=== PATIENT | female | born 1990 | race African-American/Black ===

== ENCOUNTER 2019-04-08 12:51 | Emergency (ER) | payer MEDICAID ==
[~2019-04-08] VITALS: Ht 170.2 cm; Wt 73.0 kg
[~2019-04-08 12:51] MED LIST: INSULIN
[2019-04-08 16:19] LABS: BASOPHILS % 0.7 % (0.0-2.0); EOSINOPHILS % 0.3 % (0.0-5.0); HEMATOCRIT. 41.4 % (36.0-48.0); LYMPHOCYTES % 15.1 % (20.0-50.0); MEAN CORPUSCULAR HEMOGLOBIN 32.2 pg (28.0-32.0); MEAN CORPUSCULAR VOLUME 95.5 fL (81.0-99.0); MEAN PLATELET VOLUME 8.7 fl (7.4-10.4); MONOCYTES % 6.9 % (2.0-8.0); PLATELET 403 x1000/uL (130-400); RED BLOOD CELL COUNT 4.33 mill/uL (4.2-5.4); RED CELL DISTRIBUTION WIDTH 12.4 % (11.6-14.6)
[2019-04-08 16:22] LABS: CHLORIDE 103 mEq/L (98-107)
[2019-04-08 16:35] LABS: HCG SCREEN NEGATIVE
[2019-04-08 17:15] VITALS: BP 130/80
== END 2019-04-08 17:46 | disposition home or self-care (01) ==
LOC: ER 12:51
DX: E11.649 Type 2 diabetes mellitus with hypoglycemia without coma (principal); Z79.4 Long term (current) use of insulin
CPT/HCPCS: 36415; 82962; 84703; 99283

== ENCOUNTER 2020-11-17 18:21 | Emergency (ER) | payer MEDICAID, OTHER ==
[~2020-11-17] VITALS: Ht 165.1 cm; Wt 65.0 kg
[2020-11-17 19:59] VITALS: BP 138/79
[2020-11-17] MEDS ORDERED: KETOROLAC 60MG/2ML VIAL IM ONE (20:00)
[2020-11-17] MEDS ORDERED: CYCL5TAB MT (20:05)
== END 2020-11-17 20:46 | disposition home or self-care (01) ==
LOC: ER 18:21
DX: M54.5 Low back pain (principal); E10.9 Type 1 diabetes mellitus without complications; Z79.4 Long term (current) use of insulin
CPT/HCPCS: 81025; 96372; 99283; J1885

== ENCOUNTER 2020-11-21 21:28 | Emergency (ER) | payer OTHER ==
[~2020-11-21] VITALS: Ht 162.6 cm; Wt 68.0 kg
[~2020-11-21 21:28] MED LIST changes: +CYCL5TAB MT
[2020-11-22 00:45] LABS: BASOPHILS % 0.5 % (0.0-2.0); CHLORIDE 102 mEq/L (98-107); EOSINOPHILS % 0.1 % (0.0-5.0); HEMATOCRIT. 37.5 % (36.0-48.0); LYMPHOCYTES % 38.3 % (20.0-50.0); MEAN CORPUSCULAR HEMOGLOBIN 31.3 pg (28.0-32.0); MEAN CORPUSCULAR VOLUME 90.4 fL (81.0-99.0); MONOCYTES % 8.9 % (2.0-8.0); NEUTROPHILS % 52.2 % (40.0-76.0); PLATELET 248 x1000/uL (130-400); RED BLOOD CELL COUNT 4.15 mill/uL (4.2-5.4); RED CELL DISTRIBUTION WIDTH 12.3 % (11.6-14.6)
[2020-11-22 01:02] LABS: HCG SCREEN NEGATIVE
[2020-11-22 01:11] LABS: CLARITY URINE CLOUDY (CLEAR); COLOR URINE YELLOW (YELLOW); KETONES URINE 4+ (NEGATIVE); LEUKOCYTE ESTERASE URINE TRACE (NEGATIVE); NITRITE URINE NEGATIVE (NEGATIVE); OCCULT BLOOD URINE NEGATIVE (NEGATIVE); PH URINE 6.5 (4.5-8.0); PROTEIN URINE 2+ (NEGATIVE); SPECIFIC GRAVITY URINE 1.029 (1.005-1.030)
[2020-11-22] MEDS ORDERED: SODIUM CHLORIDE 0.9% 1,000 ML IV ONE (02:15)
[2020-11-22] MEDS ORDERED: KETOROLAC 30MG/ML VIAL IV ONE (02:15)
[2020-11-22] MEDS ORDERED: CEFTRIAXONE 1 G PREMIX 50 ML IV ONE (02:15)
[2020-11-22] MEDS ORDERED: ACET-2708 MT (02:32)
[2020-11-22] MEDS ORDERED: CIPR-263 MT (02:32)
[2020-11-22 04:00] VITALS: BP 114/76
== END 2020-11-22 04:54 | disposition home or self-care (01) ==
LOC: ER 21:28
DX: N12 Tubulo-interstitial nephritis, not specified as acute or chronic (principal); E11.9 Type 2 diabetes mellitus without complications; Z79.899 Other long term (current) drug therapy
CPT/HCPCS: 36415; 76700; 80053; 81003; 81025; 83690; 84703; 85025; 87086; 96365; 96375; 99284; J1885; J7030; Z7610

== ENCOUNTER 2020-11-25 17:43 | Inpatient (IN) | payer MEDICAID, OTHER ==
[~2020-11-25] VITALS: Ht 160 cm; Wt 63.0 kg
[~2020-11-25 17:43] MED LIST changes: +ACET-2708 MT; +CIPR-263 MT
[2020-11-25] MEDS ORDERED: KETOROLAC 30MG/ML VIAL IV STA (18:11)
[2020-11-25 19:10] LABS: BASOPHILS % 0.5 % (0.0-2.0); HEMATOCRIT. 39.1 % (36.0-48.0); HEMOGLOBIN. 13.4 g/dL (12.0-16.0); MEAN CORPUSCULAR HEMOGLOBIN 31.7 pg (28.0-32.0); MEAN CORPUSCULAR VOLUME 92.3 fL (81.0-99.0); MEAN PLATELET VOLUME 9.4 fl (7.4-10.4); MONOCYTES % 7.4 % (2.0-8.0); NEUTROPHILS % 84.1 % (40.0-76.0); PLATELET 243 x1000/uL (130-400); RED BLOOD CELL COUNT 4.24 mill/uL (4.2-5.4); RED CELL DISTRIBUTION WIDTH 12.2 % (11.6-14.6)
[2020-11-25 19:20] LABS: PROTHROMBIN TIME 11.1 sec (9.6-11.0)
[2020-11-25 19:21] LABS: CHLORIDE 101 mEq/L (98-107)
[2020-11-25 19:23] LABS: HCG SCREEN NEGATIVE
[2020-11-25] MEDS ORDERED: SODIUM CHLORIDE 0.9% 1000ML BAG (SEPSIS BOLUS) IV ONE (19:30)
[2020-11-25] MEDS ORDERED: SODIUM CHLORIDE 0.9% 1,890 ML IV SCH (19:30)
[2020-11-25] MEDS ORDERED: ONDANSETRON HCL 4MG/2ML INJ IV ONE (19:30)
[2020-11-25 20:08] LABS: CLARITY URINE CLEAR (CLEAR); COLOR URINE YELLOW (YELLOW); KETONES URINE 4+ (NEGATIVE); LEUKOCYTE ESTERASE URINE NEGATIVE (NEGATIVE); NITRITE URINE NEGATIVE (NEGATIVE); OCCULT BLOOD URINE 2+ (NEGATIVE); PH URINE 5.5 (4.5-8.0); PROTEIN URINE 2+ (NEGATIVE); SPECIFIC GRAVITY URINE 1.026 (1.005-1.030); UROBILINOGEN URINE 0.2 E.U./dL (0.2-1.0)
[2020-11-25] MEDS ORDERED: CEFTRIAXONE 1 G PREMIX 50 ML IV NR (21:30)
[2020-11-25] MEDS ORDERED: AZITHROMYCIN 500 MG in DEXT 5% WATER 250 ML IV SCH (21:30)
[2020-11-25] MEDS: ONDANSETRON HCL 4MG/2ML INJ IV PRN (23:20)
[2020-11-25] MEDS: HYDROCODONE/ACETAMINOPHEN 10/325MG TABLET PO PRN (23:24)
[2020-11-26] VITALS (16 sets, daily range): BP systolic 102–140; BP diastolic 56–84
[2020-11-26] MEDS ORDERED: INSULIN REGULAR (HUMULIN R) 300UNITS/3ML VIAL SUBCUT NR ×2 (01:00)
[2020-11-26 01:34] LABS: BG BASE EXCESS -16.7 mmol/L (-2.0-2.0); BG CARBOXYHEMOGLOBIN 0.3 % (0.5-1.5); BG DEOXYHEMOGLOBIN 2.9 % (0.0-5.0); BG HCO3 ACT 8.6 mmol/L (22.0-26.0); BG METHEMOGLOBIN 0.4 % (0.0-1.5); BG OXYGEN SATURATION 97.1 % (92.0-98.5); BG OXYHEMOGLOBIN 96.4 % (94.0-97.0); BG PCO2 20.4 mmHg (35.0-45.0); BG PH 7.244 (7.350-7.450); BG PO2 97.7 mmHg (75.0-100.0); BG SAMPLE SITE RIGHT RADIAL; BG TOTAL HEMOGLOBIN 12.3 g/dL (12.0-18.0); BG VENT MODE ROOM AIR
[2020-11-26 01:46] LABS: CHLORIDE 105 mEq/L (98-107)
[2020-11-26 01:53] LABS: BETA HYDROXYBUTYRATE 4.8 mMol/L (0.0-0.3)
[2020-11-26] MEDS: SODIUM CHLORIDE 0.9% 1,000 ML IV SCH ×2 (02:45→06:00)
[2020-11-26] MEDS ORDERED: INSULIN REGULAR (DRIP) 100 UNITS in SODIUM CHLORIDE 0.9% 100 ML IV NR (02:45)
[2020-11-26] MEDS: ONDANSETRON HCL 4MG/2ML INJ IV PRN ×3 (06:07→20:24)
[2020-11-26 06:39] LABS: CHLORIDE 110 mEq/L (98-107)
[2020-11-26 06:44] LABS: PHOSPHORUS 2.2 mg/dL (2.5-4.9)
[2020-11-26] MEDS: HYDROCODONE/ACETAMINOPHEN 10/325MG TABLET PO PRN ×2 (07:48→23:44)
[2020-11-26] MEDS ORDERED: DEXTROSE 50% WATER 50ML SYRINGE IV SCH (09:30)
[2020-11-26] MEDS ORDERED: DEXT 5%/0.45% NACL 1000ML 1,000 ML IV SCH (10:00)
[2020-11-26] MEDS ORDERED: POTASSIUM-SODIUM PHOSPHATE POWDER PACKET PO NR (10:00)
[2020-11-26] MEDS ORDERED: DEXTROSE 50% WATER 50ML SYRINGE IV PRN ×3 (10:30→14:15)
[2020-11-26] MEDS: BLOOD SUGAR DIAGNOSTIC STRIP TEST SCH ×5 (10:46→21:00)
[2020-11-26] MEDS ORDERED: INSULIN REGULAR (DRIP) 100 UNITS in SODIUM CHLORIDE 0.9% 100 ML IV SCH (11:00)
[2020-11-26] MEDS ORDERED: LANTUSUD SUBCUT (12:46)
[2020-11-26] MEDS ORDERED: INSLIS SUBCUT (12:46)
[2020-11-26 13:29] LABS: CHLORIDE 108 mEq/L (98-107)
[2020-11-26 15:15] LABS: *AMPHETAMINES SCREEN URINE NEGATIVE (NEGATIVE); *BARBITURATES SCREEN URINE NEGATIVE (NEGATIVE); *BENZODIAZEPINES SCREEN URINE NEGATIVE (NEGATIVE)
[2020-11-26 15:16] LABS: *COCAINE SCREEN URINE NEGATIVE (NEGATIVE); CANNABINOID URINE SCREEN NEGATIVE (NEGATIVE); METHADONE URINE SCREEN NEGATIVE (NEGATIVE); PHENCYCLIDINE URINE SCREEN NEGATIVE (NEGATIVE)
[2020-11-26 15:20] LABS: OPIATES URINE SCREEN PRESUMTIVE POSITIVE (NEGATIVE)
[2020-11-26] MEDS: INSULIN LISPRO 100 UNITS/ML SUBCUT SCH ×3 (16:16→23:28)
[2020-11-26] MEDS: INSULIN GLARGINE UD 100 UNITS/ML SYR SUBCUT SCH ×3 (16:16→23:28)
[2020-11-26] MEDS: ACETAMINOPHEN 325MG TABLET PO PRN (17:10)
[2020-11-26] MEDS: CEFTRIAXONE 1,000 MG in DEXTROSE 5% WATER 50 ML IV SCH (23:26)
[2020-11-27] VITALS: BP 115/71
[2020-11-27] MEDS: ONDANSETRON HCL 4MG/2ML INJ IV PRN ×4 (03:35→22:50)
[2020-11-27 04:00] VITALS: BP 112/77
[2020-11-27] MEDS: BLOOD SUGAR DIAGNOSTIC STRIP TEST SCH ×4 (05:52→21:25)
[2020-11-27 05:59] LABS: HEMATOCRIT. 33.1 % (36.0-48.0); HEMOGLOBIN. 11.4 g/dL (12.0-16.0); MEAN CORPUSCULAR VOLUME 90.1 fL (81.0-99.0); MEAN PLATELET VOLUME 9.5 fl (7.4-10.4); PLATELET 233 x1000/uL (130-400); RED BLOOD CELL COUNT 3.68 mill/uL (4.2-5.4); RED CELL DISTRIBUTION WIDTH 12.4 % (11.6-14.6)
[2020-11-27] MEDS: ACETAMINOPHEN 325MG TABLET PO PRN ×2 (07:58→12:44)
[2020-11-27] MEDS: INSULIN LISPRO 100 UNITS/ML SUBCUT SCH ×4 (07:59→21:00)
[2020-11-27 08:00] VITALS: BP 135/86
[2020-11-27] MEDS: INSULIN GLARGINE UD 100 UNITS/ML SYR SUBCUT SCH ×2 (10:15→21:49)
[2020-11-27 11:39] VITALS: BP 127/68
[2020-11-27 16:00] VITALS: BP 117/67
[2020-11-27 20:00] VITALS: BP 121/68
[2020-11-27 21:10] LABS: PLATELET ESTIMATE NORMAL
[2020-11-27] MEDS: HYDROCODONE/ACETAMINOPHEN 10/325MG TABLET PO PRN (21:27)
[2020-11-27] MEDS: CEFTRIAXONE 1,000 MG in DEXTROSE 5% WATER 50 ML IV SCH (22:50)
[2020-11-28] VITALS: BP 122/85
[2020-11-28 04:00] VITALS: BP 117/83
[2020-11-28] MEDS: HYDROCODONE/ACETAMINOPHEN 10/325MG TABLET PO PRN ×2 (04:08→21:50)
[2020-11-28] MEDS: ONDANSETRON HCL 4MG/2ML INJ IV PRN ×4 (05:03→21:24)
[2020-11-28 05:59] LABS: CHLORIDE 106 mEq/L (98-107)
[2020-11-28 06:18] LABS: BASOPHILS % 0.3 % (0.0-2.0); EOSINOPHILS % 0.2 % (0.0-5.0); HEMATOCRIT. 35.2 % (36.0-48.0); LYMPHOCYTES % 24.3 % (20.0-50.0); MEAN CORPUSCULAR HEMOGLOBIN 30.7 pg (28.0-32.0); MEAN CORPUSCULAR VOLUME 89.9 fL (81.0-99.0); MEAN PLATELET VOLUME 9.4 fl (7.4-10.4); MONOCYTES % 13.9 % (2.0-8.0); NEUTROPHILS % 61.3 % (40.0-76.0); PLATELET 304 x1000/uL (130-400); RED BLOOD CELL COUNT 3.92 mill/uL (4.2-5.4)
[2020-11-28] MEDS: BLOOD SUGAR DIAGNOSTIC STRIP TEST SCH ×4 (06:18→21:23)
[2020-11-28 08:00] VITALS: BP 118/68
[2020-11-28] MEDS: INSULIN LISPRO 100 UNITS/ML SUBCUT SCH ×4 (08:30→21:00)
[2020-11-28] MEDS: INSULIN GLARGINE UD 100 UNITS/ML SYR SUBCUT SCH ×2 (10:33→21:35)
[2020-11-28 12:00] VITALS: BP 108/66
[2020-11-28 16:00] VITALS: BP 128/79
[2020-11-28] MEDS ORDERED: SODIUM CHL 0.9% + KCL 20MEQ/L 1,000 ML IV SCH (18:00)
[2020-11-28] MEDS ORDERED: LACTULOSE 20G/30ML UDC PO NR (19:45)
[2020-11-28] MEDS ORDERED: POTASSIUM CHLORIDE 20MEQ/PACKET PO NR (19:45)
[2020-11-28 20:00] VITALS: BP 132/91
[2020-11-28] MEDS: CEFTRIAXONE 1,000 MG in DEXTROSE 5% WATER 50 ML IV SCH (21:24)
[2020-11-28] MEDS: METOCLOPRAMIDE HCL 5MG TABLET PO SCH (21:32)
[2020-11-29] VITALS: BP 135/87
[2020-11-29 04:00] VITALS: BP 135/78
[2020-11-29] MEDS: METOCLOPRAMIDE HCL 5MG TABLET PO SCH (04:51)
[2020-11-29] MEDS: BLOOD SUGAR DIAGNOSTIC STRIP TEST SCH ×2 (04:54→12:58)
[2020-11-29 07:10] LABS: HEMATOCRIT. 33.6 % (36.0-48.0); HEMOGLOBIN. 11.2 g/dL (12.0-16.0); MEAN CORPUSCULAR HEMOGLOBIN 30.6 pg (28.0-32.0); MEAN CORPUSCULAR VOLUME 91.9 fL (81.0-99.0); MEAN PLATELET VOLUME 9.5 fl (7.4-10.4); PLATELET 292 x1000/uL (130-400); RED BLOOD CELL COUNT 3.66 mill/uL (4.2-5.4); RED CELL DISTRIBUTION WIDTH 12.4 % (11.6-14.6)
[2020-11-29 07:28] LABS: CHLORIDE 106 mEq/L (98-107)
[2020-11-29 08:00] VITALS: BP 129/75
[2020-11-29] MEDS ORDERED: METOCLOPRAMIDE HCL 10MG/2ML VIAL IV PRN (08:30)
[2020-11-29] MEDS: INSULIN LISPRO 100 UNITS/ML SUBCUT SCH ×2 (08:47→12:50)
[2020-11-29] MEDS: INSULIN GLARGINE UD 100 UNITS/ML SYR SUBCUT SCH (10:41)
[2020-11-29] MEDS ORDERED: METO5TAB2 PO (11:28)
[2020-11-29 12:00] VITALS: BP 123/79
[2020-11-29 13:08] VITALS: BP 123/79
[2020-11-29 14:12] LABS: ATYPICAL LYMPHOCYTES 1; PLATELET ESTIMATE NORMAL
== END 2020-11-29 14:03 | disposition home or self-care (01) | DRG 720 ==
LOC: ER 17:43 → MICUSO 21:28 → EDBEDREQTM 22:41 → EDBEDREQSVC 22:41 → ENRESERV 11-26 00:08 → CANRESERV 11-26 00:08 → EDBEDREQDT 11-26 02:08 → EDBEDREQSVC 11-26 02:08 → EDBEDREQTM 11-26 02:08 → EDBEDREQ 11-26 02:09 → ENRESERV 11-26 08:23 → 6WST 11-26 22:14 → UNDODISIN 11-27 10:33
PROVIDERS: ADMIT Internal Medicine; ATTEND Internal Medicine
DX: A41.9 Sepsis, unspecified organism (principal); E11.10 Type 2 diabetes mellitus with ketoacidosis without coma; E87.1 Hypo-osmolality and hyponatremia; E87.6 Hypokalemia; N39.0 Urinary tract infection, site not specified; Z79.4 Long term (current) use of insulin; Z20.822 Contact with and (suspected) exposure to COVID-19
CPT/HCPCS: 36415; 36600; 71045; 74176; 76830; 76856; 80048; 80053; 80305; 81003; 82010; 82375; 82805; 82962; 83036; 83605; 83735; 84100; 84145; 84703; 85025; 99285; J0456; J0696; J1815; J1885; J2405; J2765; J3480; J7030; J7050; J7060; J8597; U0003

== ENCOUNTER 2022-09-10 11:05 | Emergency (ER) | payer MEDICAID ==
[~2022-09-10] VITALS: Ht 170.2 cm; Wt 69.0 kg
[~2022-09-10 11:05] MED LIST changes: -ACET-2708 MT; -CIPR-263 MT; +INSLIS SUBCUT; +LANTUSUD SUBCUT; +METO5TAB2 PO
[2022-09-10] MEDS ORDERED: BLOO-1482 MC (13:51)
[2022-09-10 14:13] VITALS: BP 134/79
== END 2022-09-10 14:22 | disposition home or self-care (01) ==
LOC: ER 12:02
DX: E11.649 Type 2 diabetes mellitus with hypoglycemia without coma (principal); Z79.4 Long term (current) use of insulin
CPT/HCPCS: 82962; 99283

== ENCOUNTER 2023-05-01 15:15 | Emergency (ER) | payer MEDICAID, OTHER ==
[~2023-05-01] VITALS: Ht 162.6 cm; Wt 70.5 kg
[~2023-05-01 15:15] MED LIST changes: +BLOO-1482 MC
[2023-05-01 15:43] VITALS: BP 122/87; PULSE 88; RESP 18; O2SAT 100
[2023-05-01 16:43] LABS: CLARITY URINE CLOUDY (CLEAR); COLOR URINE YELLOW (YELLOW); GLUCOSE URINE 2+ (NEGATIVE); KETONES URINE NEGATIVE (NEGATIVE); LEUKOCYTE ESTERASE URINE 2+ (NEGATIVE); NITRITE URINE NEGATIVE (NEGATIVE); OCCULT BLOOD URINE 3+ (NEGATIVE); PH URINE 5.5 (4.5-8.0); PROTEIN URINE 1+ (NEGATIVE); SPECIFIC GRAVITY URINE 1.029 (1.005-1.030)
[2023-05-01 17:19] LABS: BACTERIA URINE 2+; RBC URINE TNTC /hpf (0-2); SQUAMOUS EPITHELIAL CELL URINE 1+ /lpf (RARE/1+)
[2023-05-01 17:20] LABS: YEAST URINE RARE
[2023-05-01] MEDS ORDERED: ACETAMINOPHEN 325MG TABLET PO ONE (17:30)
[2023-05-01] MEDS ORDERED: KETOROLAC 60MG/2ML VIAL IM ONE (17:30)
[2023-05-01] MEDS ORDERED: CEPH500C2 MT (17:44)
[2023-05-01 18:07] VITALS: TEMP 98.3
== END 2023-05-01 18:09 | disposition home or self-care (01) ==
LOC: ER 15:15
DX: N39.0 Urinary tract infection, site not specified (principal); E11.9 Type 2 diabetes mellitus without complications
CPT/HCPCS: 99283; 81003; 81025; 96372; J1885